=== PATIENT | female | born 1995 | race Caucasian/White ===

== ENCOUNTER 2017-05-09 10:41 | Emergency (ER) | payer MEDICAID, SELFPAY ==
[2017-05-09] MEDS ORDERED: Acetaminophen 500 MG TAB ONE (10:56)
--- NOTE | 2017-05-09 11:47 | RAD ---
TWO VIEWS OF THE CHEST: 05/09/2017 HISTORY: Fever. Cough. Congestion. COMPARISON: 09/27/2014 FINDINGS: There is no pneumothorax or pleural fluid. No focal consolidation or alveolar edema. Heart and medi astinal contours are stable. IMPRESSION: No acute findings. POS: [facility]
[2017-05-09] MEDS ORDERED: Ketorolac Tromethamine 30 MG/ML VIAL ONE (11:56)
== END 2017-05-09 12:10 | disposition home or self-care (01) ==
LOC: SCSER 10:41
DX: B34.9 Viral infection, unspecified (principal); F41.9 Anxiety disorder, unspecified; G43.909 Migraine, unspecified, not intractable, without status migrainosus
CPT/HCPCS: 71020; 87081; 87430; 96372; J1885

== ENCOUNTER 2017-05-10 14:59 | Emergency (ER) | payer SELFPAY ==
[2017-05-10] MEDS ORDERED: Lidocaine 1% w/Epinephrine 1:200K 30 ML VIAL ONE (15:36)
[2017-05-10 16:04] LABS: Bilirubin Negative (Negative); Blood, Urine Negative (Negative); Glucose, Urine (Dipstick) Negative (Negative); Ketone, Urine Negative (Negative); Nitrite Negative (Negative); Protein, Urine (Dipstick) Negative (Neg-Trace)
[2017-05-10 16:04] LABS: #Lymphocytes 2.3 thou/uL (1.20-3.40); #Monocytes 1.1 thou/uL (0.11-0.59); #Neutrophils 9.6 thou/uL (1.40-6.50); %Basophils 0.4 % (0.0-1.0); %Eosinophils 0.3 % (0.0-10.0); %Lymphocytes 17.3 % (21.0-51.0); %Monocytes 8.2 % (0.0-10.0); Hematocrit 36.5 % (36.0-47.0); Mean Platelet Volume 7.5 fL (7.4-10.4); Red Blood Cell (RBC) Count 4.08 mill/uL (4.20-5.40)
[2017-05-10 16:18] LABS: Lactic Acid - Sepsis 0.7 mmol/L (0.5-2.2)
[2017-05-10 16:24] LABS: ALT (SGPT) 18 U/L (8-55); AST (SGOT) 16 U/L (5-34); Alkaline Phosphatase 78 U/L (40-150); Anion Gap 9 mmol/L (10-20); BUN (Urea Nitrogen) 6 mg/dL (7.0-18.7); Bilirubin, Total 0.4 mg/dL (0.2-1.2); Calc. Creatinine Clearance 0 mL/min (70-130); Calcium 9.1 mg/dL (7.8-10.44); Carbon Dioxide 26 mmol/L (22-29); Chloride 106 mmol/L (98-107); Estimated GFR-MDRD Greater than 90
[2017-05-10] MEDS ORDERED: Ketorolac Tromethamine 30 MG/ML VIAL ONE (16:26)
--- NOTE | 2017-05-10 17:53 | RAD ---
ONE VIEW CHEST 05/10/17 HISTORY: Fever. COMPARISON: 03/27/14, 05/09/17. FINDINGS: Portable upright chest demonstrates a normal cardiac silhouette. Lungs and pleural bases are clear. N o pneumothorax or osseous abnormalities. IMPRESSION: No acute cardiopulmonary process. POS: [facility]
== END 2017-05-10 17:18 | disposition home or self-care (01) ==
LOC: ERS 14:59
DX: R50.9 Fever, unspecified (principal); F41.9 Anxiety disorder, unspecified; G43.909 Migraine, unspecified, not intractable, without status migrainosus
CPT/HCPCS: 36415; 71010; 80053; 81003; 83605; 83690; 84703; 85025; 85652; 86140; 87040; 87081; 87430; 96361; 96374; J1885

== ENCOUNTER 2018-07-19 10:14 | Emergency (ER) | payer OTHER, SELFPAY | END 2018-07-19 11:24 | disposition home or self-care (01) | LOC: SCSER 10:14 | DX: B34.9 Viral infection, unspecified (principal); G43.909 Migraine, unspecified, not intractable, without status migrainosus; F17.210 Nicotine dependence, cigarettes, uncomplicated; F41.9 Anxiety disorder, unspecified | CPT/HCPCS: 87081; 87430; 87804; 99283 ==

== ENCOUNTER 2018-07-20 18:28 | Emergency (ER) | payer OTHER ==
[2018-07-20] MEDS ORDERED: Ibuprofen 200 MG TAB ONE (21:13)
[2018-07-20] MEDS ORDERED: Bicillin LA 1.2 MILLION UNITS/2 ML SYRINGE ONE (21:52)
[2018-07-20] MEDS ORDERED: Acetaminophen 500 MG TAB ONE (22:12)
== END 2018-07-20 22:16 | disposition home or self-care (01) ==
LOC: ERS 18:28
DX: J02.0 Streptococcal pharyngitis (principal); G43.909 Migraine, unspecified, not intractable, without status migrainosus; F41.9 Anxiety disorder, unspecified; F17.210 Nicotine dependence, cigarettes, uncomplicated
CPT/HCPCS: 87430; 87804; 96372; J0561

== ENCOUNTER 2020-11-13 17:16 | Emergency (ER) | payer OTHER, SELFPAY ==
[2020-11-13] MEDS ORDERED: Ketorolac Tromethamine 30 MG/ML VIAL ONE (18:02)
== END 2020-11-13 19:23 | disposition home or self-care (01) ==
LOC: ERS 17:16
DX: R07.89 Other chest pain (principal); G43.909 Migraine, unspecified, not intractable, without status migrainosus
CPT/HCPCS: 71045; 93005; 96372; J1885